=== PATIENT | female | born 1960 | race Two or more races ===

== ENCOUNTER 2024-11-27 16:21 | Emergency (ER) | payer OTHER ==
[~2024-11-27] VITALS: Ht 167.6 cm; Wt 99.8 kg
[2024-11-27] MEDS ORDERED: KEPPRA500 MG (16:46)
[2024-11-27] MEDS ORDERED: KETOROLAC TROMETHAMINE 30 MG VIAL IM STA (17:07)
[2024-11-27] MEDS ORDERED: TRAMADOL HCL 50 MG TABLET PO STA (19:10)
== END 2024-11-27 20:11 | disposition home or self-care (01) ==
LOC: ER 16:21
DX: M79.604 Pain in right leg (principal); Z88.2 Allergy status to sulfonamides; Z88.1 Allergy status to other antibiotic agents
CPT/HCPCS: 72192; 96372; 99284; J1885